=== PATIENT | male | born 1945 | race Caucasian/White ===

== ENCOUNTER → 2018-08-26 | Outpatient (CLI) | payer MEDICARE, BC | LOC: COL.RAD 09:41 | DX: Z01.812 Encounter for preprocedural laboratory examination (principal); I65.01 Occlusion and stenosis of right vertebral artery | CPT/HCPCS: Q9967 ==

== ENCOUNTER 2022-09-04 08:15 | Outpatient (RCR) | payer MEDICARE, BC | END 2022-09-23 | disposition home or self-care (01) | LOC: WSST | DX: R13.14 Dysphagia, pharyngoesophageal phase (principal) ==